=== PATIENT | female | born 1940 | race Caucasian/White ===

== ENCOUNTER 2016-03-26 10:51 | Inpatient (IN) | payer MEDICARE, OTHER ==
[2016-03-26 11:41] LABS: ABSOLUTE LYMPHOCYTES (AUTO) 0.6 10^3/uL (0.5-4.7); ABSOLUTE MONOCYTES (AUTO) 0.9 10^3/uL (0.1-1.4); ABSOLUTE NEUT (AUTO) 7.7 10^3/uL (1.7-8.2); BASOPHILS % (AUTO) 0.3 % (0-2); EOSINOPHILS % (AUTO) 0.3 % (0-6); HEMATOCRIT 38.4 % (36.0-47.0); HEMOGLOBIN 13.1 g/dL (12.0-15.5); HGB HCT DIFFERENCE 0.9; LYMPHOCYTES % (AUTO) 6.5 % (13-45); MEAN CORPUSCULAR HEMOGLOBIN 33.6 pg (27.0-33.4); MEAN CORPUSCULAR HGB CONC 34.2 g/dL (32.0-36.0); MEAN CORPUSCULAR VOLUME 98 fl (80-97); MONOCYTES % (AUTO) 9.7 % (3-13); RED CELL DISTRIBUTION WIDTH 13.5 % (11.5-14.0); SEGMENTED NEUTROPHILS % (AUTO) 83.2 % (42-78); WHITE BLOOD COUNT 9.3 10^3/uL (4.0-10.5)
[2016-03-26 12:00] LABS: ALANINE AMINOTRANSFERASE 39 U/L (9-52); ALBUMIN 3.6 g/dL (3.5-5.0); ALKALINE PHOSPHATASE 108 U/L (38-126); ANION GAP 8 (5-19); ASPARTATE AMINO TRANSFERASE 51 U/L (14-36); BILIRUBIN,TOTAL 1.6 mg/dL (0.2-1.3); BLOOD UREA NITROGEN 8 mg/dL (7-20); CALCIUM 8.7 mg/dL (8.4-10.2); CARBON DIOXIDE 29 mmol/L (22-30); CHLORIDE 94 mmol/L (98-107); CREATINE KINASE 46 U/L (30-135); GLUCOSE 105 mg/dL (75-110); POTASSIUM 3.9 mmol/L (3.6-5.0); SODIUM 130.8 mmol/L (137-145); TOTAL PROTEIN 6.7 g/dL (6.3-8.2)
[2016-03-26 12:20] LABS: CREATINE KINASE MB 0.87 ng/mL (<4.55); TROPONIN I 0.075 ng/mL
--- NOTE | 2016-03-26 12:45 | ER Document Report ---
ED General - General Chief Complaint: Syncope Stated Complaint: POSSIBLE SYNCOPE Mode of Arrival: Medic Information source: Patient Notes: 68-year-old female history of A. fib presents after syncopal episode today.. Pt notes she has not felt well the past few weeks, deniea any chest pain sob, difficlty breathing. pt found by EMS with a heart rate in the 170s was given Cardizem bolus placed on the drip and brought to the emergency department for evaluation patient at this time denies any complaints Patient is on metoprolol TRAVEL OUTSIDE OF THE [place] IN LAST 30 DAYS: No - HPI Onset: Just prior to arrival Onset/Duration: Sudden Quality of pain: No pain Severity: Mild Pain Level: Denies Associated symptoms: Sore throat, Weakness Exacerbated by: Denies Relieved by: Denies Similar symptoms previously: No Recently seen / treated by doctor: No - Related Data Allergies/Adverse Reactions: Penicillins Allergy (Verified 12/13/14 15:09) Tetanus Vaccines and Toxoid [Tetanus] Allergy (Verified 12/13/14 15:09) Past Medical History - Social History Smoking Status: Former Smoker Cigarette use (# per day): No Chew tobacco use (# tins/day): No Smoking Education Provided: No Family History: None - Past Medical History Cardiac Medical History: Reports: Hx Atrial Fibrillation, Hx Hypercholesterolemia, Hx Hypertension Renal/ Medical History: Denies: Hx Peritoneal Dialysis Past Surgical History: Reports: Hx Appendectomy, Hx Hysterectomy Review of Systems - Review of Systems Notes: REVIEW OF SYSTEMS: CONSTITUTIONAL : Denies fever, chills, or sweats. Denies recent illness. EENT: Admits to sore throat CARDIOVASCULAR: Denies chest pain. Denies palpitations or racing or irregular heart beat. Denies ankle edema. RESPIRATORY: Denies cough, cold, or chest congestion. Denies shortness of breath, difficulty breathing, or wheezing. GASTROINTESTINAL: Denies abdominal pain or distention. Denies nausea, vomiting , or diarrhea. Denies blood in vomitus, stools, or per rectum. Denies black, tarry stools. Denies constipation. GENITOURINARY: Denies difficulty urinating, painful urination, burning, frequency, blood in urine, or discharge. FEMALE GENITOURINARY: Denies vaginal bleeding, heavy or abnormal periods, irregular periods. Denies vaginal discharge or odor. MUSCULOSKELETAL: Denies back or neck pain or stiffness. Denies joint pain or swelling. SKIN: Denies rash, lesions or sores. HEMATOLOGIC : Denies easy bruising or bleeding. LYMPHATIC: Denies swollen, enlarged glands. NEUROLOGICAL: Admits to syncope PSYCHIATRIC: Denies anxiety or stress. Denies depression, suicidal ideation, or homicidal ideation. ALL OTHER SYSTEMS REVIEWED AND NEGATIVE. Dictation was performed using [employer] voice recognition software PHYSICAL EXAMINATION: GENERAL: Well-appearing, well-nourished and in no acute distress. HEAD: Atraumatic, normocephalic. EYES: Pupils equal round and reactive to light, extraocular movements intact, conjunctiva are normal. ENT: Pustular tonsillar pillars on the right NECK: Normal range of motion, supple without lymphadenopathy LUNGS: Breath sounds clear to auscultation bilaterally and equal. No wheezes rales or rhonchi. HEART: irregular rate and rhythm ABDOMEN: Soft, nontender, nondistended abdomen. No guarding, no rebound. No masses appreciated. Female : deferred Musculoskeletal: Normal range of motion, no pitting or edema. No cyanosis. NEUROLOGICAL: Cranial nerves grossly intact. Normal speech, normal gait. Normal sensory, motor exams PSYCH: Normal mood, normal affect. SKIN: Warm, Dry, normal turgor, no rashes or lesions noted. Physical Exam - Vital signs Vitals: Temp Pulse Resp BP Pulse Ox 98.6 F 97 16 125/67 98 03/26/16 11:16 03/26/16 11:16 03/26/16 11:16 03/26/16 11:16 03/26/16 11:16 Course - Re-evaluation Re-evalutation: 03/26/16 12:48 Patient is currently on Cardizem drip resting comfortably in no distress. Happy strep pending laboratory notes no significant abnormality I will admit the patient for A. fib RVR - Vital Signs Vital signs: Temp Pulse Resp BP Pulse Ox 98.6 F 97 16 125/67 98 03/26/16 11:16 03/26/16 11:16 03/26/16 11:16 03/26/16 11:16 03/26/16 11:36 - Laboratory Result Diagrams: 03/26/16 11:25 03/26/16 11:25 Laboratory results interpreted by me: 03/26/16 03/26/16 11:25 11:25 MCV 98 H MCH 33.6 H Seg Neutrophils % 83.2 H Lymphocytes % 6.5 L Sodium 130.8 L Chloride 94 L Total Bilirubin 1.6 H AST 51 H - Diagnostic Test Radiology reviewed: Image reviewed, Reports reviewed Critical Care Note - Critical Care Note Total time excluding time spent on procedures (mins): 34 Comments: 34 minutes of critical care time spent in direct contact evaluating and reevaluating the patient, treating symptoms, reviewing labs and studies and speaking with family and consultants excluding any procedures Discharge - Discharge Clinical Impression: Atrial fibrillation with RVR, Syncope and collapse Condition: Stable Disposition: ADMITTED OBSERVATION Admitting Provider: Hospitalist Unit Admitted: [facility]
[2016-03-26] MEDS ORDERED: ONDANSETRON 4 MG TAB.RAPDIS PO PRN (14:13)
[2016-03-26] MEDS ORDERED: ACETAMINOPHEN 325 MG TABLET PO PRN (14:13)
[2016-03-26] MEDS ORDERED: DILTIAZEM HCL/D5W 125 ML IV PRN ×2 (14:21→15:01)
[2016-03-26] MEDS ORDERED: LISINOPRIL 10 MG TABLET PO ONE (15:00)
[2016-03-26] MEDS ORDERED: METOPROLOL SUCCINATE 50 MG TAB.SR.24H PO ONE (15:15)
--- NOTE | 2016-03-26 15:19 | PDOC H&P ---
History of Present Illness Admission Date/PCP: 03/26/16 13:45 SARAY LOPEZ Patient complains of: Loss of consciousness and palpitations History of Present Illness: TAMEKA THOMAS is a 76 year old female who has a history of atrial fibrillation who was standing up this morning and began feeling palpitations and then lost consciousness and fell to the floor. She quickly regained consciousness but did note her heart going fast. EMS was called and when they arrived she was noted have a heart rate of 170. Patient denied any chest pain associated with this. She did have some mild shortness of breath. The patient was given diltiazem and her heart rate has decreased. She normally takes metoprolol 25 mg daily for her hypertension and atrial fibrillation. Patient reports that she has been compliant with her medications. She does take Xarelto chronically. Patient is followed by Dr. Anthony of [facility] cardiology for her cardiac issues. Past Medical History Cardiac Medical History: Reports: Atrial Fibrillation, Hyperlipidema, Hypertension Neurological Medical History: Reports: Seizures Endocrine Medical History: Reports: None Renal/ Medical History: Reports: None Malignancy Medical History: Reports: None GI Medical History: Reports: None Skin Medical History: Reports: None Psychiatric Medical History: Reports: None Traumatic Medical History: Reports: None Hematology: Reports: None Infectious Medical History: Reports: None Past Surgical History Past Surgical History: Reports: Appendectomy, Hysterectomy Social History Information Source: Patient Lives with: Family Smoking Status: Former Smoker Frequency of Alcohol Use: None Hx Recreational Drug Use: No Drugs: None Hx Prescription Drug Abuse: No - Advance Directive Resuscitation Status: Full Code Family History Family History: Mother at age 68 and had coronary artery disease and diabetes mellitus. Father at age 55 and had coronary artery disease. Parental Family History Reviewed: Yes Children Family History Reviewed: No Sibling(s) Family History Reviewed.: No Medication/Allergy Home Medications: Nitrofurantoin/Nitrofuran Mac [Macrobid 100 mg Capsule] 100 mg PO BID #14 capsule 12/13/14 Allergies/Adverse Reactions: Penicillins Allergy (Verified 12/13/14 15:09) Tetanus Vaccines and Toxoid [Tetanus] Allergy (Verified 12/13/14 15:09) Review of Systems Constitutional: ABSENT: chills, fever(s), headache(s), weight gain, weight loss Eyes: ABSENT: visual disturbances Ears: ABSENT: hearing changes Cardiovascular: PRESENT: dyspnea on exertion, palpitations. ABSENT: chest pain , edema, orthropnea Respiratory: PRESENT: dyspnea. ABSENT: cough, hemoptysis Gastrointestinal: ABSENT: abdominal pain, constipation, diarrhea, hematemesis, hematochezia, nausea, vomiting Genitourinary: ABSENT: dysuria, hematuria Musculoskeletal: ABSENT: joint swelling Integumentary: ABSENT: rash, wounds Neurological: PRESENT: syncope Psychiatric: ABSENT: anxiety, depression, homidical ideation, suicidal ideation Endocrine: ABSENT: cold intolerance, heat intolerance, polydipsia, polyuria Hematologic/Lymphatic: ABSENT: easy bleeding, easy bruising Physical Exam Vital Signs: Temp Pulse Resp BP Pulse Ox 98.6 F 97 20 112/65 99 03/26/16 11:16 03/26/16 13:06 03/26/16 13:06 03/26/16 13:06 03/26/16 13:06 General appearance: PRESENT: no acute distress, well-developed, well-nourished Head exam: PRESENT: atraumatic, normocephalic Eye exam: PRESENT: conjunctiva pink, EOMI, PERRLA. ABSENT: scleral icterus Ear exam: PRESENT: normal external ear exam Mouth exam: PRESENT: moist, tongue midline Neck exam: ABSENT: carotid bruit, JVD, lymphadenopathy, thyromegaly Respiratory exam: PRESENT: clear to auscultation maryanne. ABSENT: rales, rhonchi, wheezes Cardiovascular exam: PRESENT: irregular rhythm. ABSENT: diastolic murmur, rubs , systolic murmur Pulses: PRESENT: normal dorsalis pedis pul Vascular exam: PRESENT: normal capillary refill GI/Abdominal exam: PRESENT: normal bowel sounds, soft. ABSENT: distended, guarding, mass, organolmegaly, rebound, tenderness Rectal exam: PRESENT: deferred Extremities exam: ABSENT: calf tenderness, clubbing, pedal edema Neurological exam: PRESENT: alert, awake, oriented to person, oriented to place , oriented to time, oriented to situation, CN II-XII grossly intact. ABSENT: motor sensory deficit Psychiatric exam: PRESENT: appropriate affect Skin exam: PRESENT: dry, intact, warm. ABSENT: cyanosis, rash Results Impressions: Chest/Abdomen CTA 03/26/16 12:45 IMPRESSION: 1. No PE. 2. Lower lobe airspace disease could represent atelectasis or developing pneumonia. Clinical correlation is needed. Assessment & Plan - Diagnosis (1) Syncope and collapse Is this a current diagnosis for this admission?: YesPlan: The patient had syncope the most likely secondary to age fibrillation with a rapid ventricular rate. When EMS arrived her heart rate was 170. She is currently rate controlled with diltiazem drip. Patient only takes metoprolol and we will increase her metoprolol dose and see if we can wean off of the diltiazem drip. She does have a history of a seizure disorder but did not have any postictal state. (2) Atrial fibrillation with RVR Is this a current diagnosis for this admission?: YesPlan: The patient is rate controlled now with diltiazem drip. We will increase her metoprolol dose and see if we can wean off of her diltiazem. She is currently anticoagulated with Xarelto. (3) Seizure disorder Is this a current diagnosis for this admission?: YesPlan: Continue with Keppra. The patient did not have any seizure activity and did not have a postictal state. This was not the cause of her syncope. (4) Hyperlipidemia Is this a current diagnosis for this admission?: YesPlan: Continue with Zocor. (5) Hypertension Is this a current diagnosis for this admission?: YesPlan: Patient has been on metoprolol and lisinopril for blood pressure control. We' ll continue with those but we will increase her dose of metoprolol. - Time Time Spent: 50 to 70 Minutes - Plan Summary Plan Summary: We'll admit as an observation as I anticipate this will require less than a 2 midnight hospital stay.
[2016-03-26 15:39] LABS: CREATINE KINASE MB 0.98 ng/mL (<4.55)
[2016-03-26 15:55] LABS: TROPONIN I 0.12 ng/mL
[2016-03-26] MEDS: RIVAROXABAN 10 MG TABLET PO SCH (19:02)
[2016-03-26] MEDS: FAMOTIDINE 20 MG TABLET PO SCH (21:23)
[2016-03-26] MEDS: SIMVASTATIN 40 MG TABLET PO SCH (21:23)
[2016-03-26] MEDS: LEVETIRACETAM 500 MG TABLET PO SCH (21:23)
[2016-03-26] MEDS: MONTELUKAST SODIUM 10 MG TABLET PO SCH (21:23)
[2016-03-26 21:28] LABS: TROPONIN I 0.133 ng/mL
--- NOTE | 2016-03-26 23:52 | EKG REPORT ---
SEVERITY:- ABNORMAL ECG - ATRIAL FIBRILLATION, V-RATE 75-122 CONSIDER LEFT VENTRICULAR HYPERTROPHY : Confirmed by: Marlena Graff 26-Mar-2016 23:52:11
--- NOTE | 2016-03-26 23:53 | EKG REPORT ---
SEVERITY:- ABNORMAL ECG - ATRIAL FIBRILLATION VPCs NONSPECIFIC REPOL ABNORMALITY, DIFFUSE LEADS : Confirmed by: Marlena Graff 26-Mar-2016 23:51:54
[2016-03-27] MEDS ORDERED: METOPROLOL TARTRATE PF/INJ 5 MG/5 ML SDV IV ONE ×2 (01:20→02:00)
[2016-03-27 03:24] LABS: CREATINE KINASE MB 1.18 ng/mL (<4.55); TROPONIN I 0.098 ng/mL
[2016-03-27 07:14] LABS: ANION GAP 12 (5-19); BLOOD UREA NITROGEN 10 mg/dL (7-20); CALCIUM 8.9 mg/dL (8.4-10.2); CARBON DIOXIDE 22 mmol/L (22-30); CHLORIDE 97 mmol/L (98-107); CREATININE RESULT 0.43 mg/dL (0.52-1.25); GLUCOSE 91 mg/dL (75-110); MAGNESIUM 1.8 mg/dL (1.6-2.3); SODIUM 130.7 mmol/L (137-145)
[2016-03-27] MEDS: LISINOPRIL 10 MG TABLET PO SCH (12:02)
[2016-03-27] MEDS: HALOPERIDOL 5 MG TABLET PO PRN (12:02)
[2016-03-27] MEDS: FAMOTIDINE 20 MG TABLET PO SCH ×2 (12:03→21:58)
[2016-03-27] MEDS: LEVETIRACETAM 500 MG TABLET PO SCH ×2 (12:03→21:58)
[2016-03-27] MEDS: METOPROLOL SUCCINATE 50 MG TAB.SR.24H PO SCH (12:04)
[2016-03-27] MEDS ORDERED: LORAZEPAM INJ 2 MG/1 ML VIAL IV PRN (12:58)
[2016-03-27] MEDS ORDERED: LORAZEPAM INJ 2 MG/1 ML VIAL ONE (13:15)
--- NOTE | 2016-03-27 13:21 | PDOC PROGRESS REPORT ---
Subjective Progress Note for:: 03/27/16 Subjective:: Patient became confused last night. Her heart rate has fluctuated. She has had to be restarted on diltiazem. Physical Exam Vital Signs: Temp Pulse Resp BP Pulse Ox 98.4 F 79 19 142/52 H 98 03/27/16 11:41 03/27/16 12:00 03/27/16 11:41 03/27/16 12:46 03/27/16 11:41 Intake & Output 03/26/16 03/27/16 03/28/16 06:59 06:59 06:59 Intake Total 855 237 Output Total 250 Balance 605 237 Weight 51.6 kg General appearance: PRESENT: no acute distress Eye exam: PRESENT: conjunctiva pink. ABSENT: scleral icterus Mouth exam: PRESENT: moist, tongue midline Neck exam: ABSENT: carotid bruit, JVD, lymphadenopathy, thyromegaly Respiratory exam: PRESENT: clear to auscultation maryanne. ABSENT: rales, rhonchi, wheezes Cardiovascular exam: PRESENT: irregular rhythm. ABSENT: diastolic murmur, rubs , systolic murmur GI/Abdominal exam: PRESENT: normal bowel sounds, soft. ABSENT: distended, guarding, mass, organolmegaly, rebound, tenderness Extremities exam: ABSENT: calf tenderness, clubbing, pedal edema Neurological exam: PRESENT: alert, awake, oriented to person, oriented to place. ABSENT: oriented to time, oriented to situation Psychiatric exam: PRESENT: anxious Skin exam: PRESENT: dry, intact, warm. ABSENT: cyanosis, rash Results Laboratory Results: 03/27/16 06:45 03/27/16 03/27/16 06:45 06:45 Sodium 130.7 L Potassium 4.0 Chloride 97 L Carbon Dioxide 22 Anion Gap 12 BUN 10 Creatinine 0.43 L Est GFR ( Amer) > 60 Est GFR (Non-Af Amer) > 60 Glucose 91 Calcium 8.9 Magnesium 1.8 TSH 1.13 03/26/16 03/26/16 03/26/16 14:49 14:49 20:45 Creatine Kinase 43 46 CK-MB (CK-2) 0.98 Troponin I 0.120 03/26/16 03/27/16 03/27/16 20:45 02:47 02:47 Creatine Kinase 44 CK-MB (CK-2) 1.00 1.18 Troponin I 0.133 0.098 Impressions: Chest/Abdomen CTA 03/26/16 12:45 IMPRESSION: 1. No PE. 2. Lower lobe airspace disease could represent atelectasis or developing pneumonia. Clinical correlation is needed. Assessment & Plan - Diagnosis (1) Syncope and collapse Is this a current diagnosis for this admission?: YesPlan: The patient had syncope the most likely secondary to age fibrillation with a rapid ventricular rate. When EMS arrived her heart rate was 170. She is currently rate controlled with diltiazem drip. The metoprolol was increased yesterday. Cardiology has been consulted. (2) Atrial fibrillation with RVR Is this a current diagnosis for this admission?: YesPlan: The patient is rate controlled now with diltiazem drip. The patient converted yesterday evening to a sinus rhythm but has gone back into atrial fibrillation. We will consult cardiology for their opinion. She is currently anticoagulated with Xarelto. (3) Seizure disorder Is this a current diagnosis for this admission?: YesPlan: Continue with Keppra. . (4) Hyperlipidemia Is this a current diagnosis for this admission?: YesPlan: Continue with Zocor. (5) Hypertension Is this a current diagnosis for this admission?: YesPlan: Patient has been on metoprolol and lisinopril for blood pressure control. We' ll continue with those. - Time Time Spent with patient: 25-34 minutes - Inpatient Certification Medical Necessity: Need Close Monitoring Due to Risk of Patient Decompensation - Plan Summary Plan Summary: We'll change from an observation to an inpatient as she is not ready to go home because her heart rate is still not controlled.
--- NOTE | 2016-03-27 13:58 | PDOC CONSULTATION ---
History of Present Illness Admission Date/PCP: 03/26/16 13:45 SARAY Blanca JESSICA Date of consultation: 03/27/2016. Patient complains of: Atrial fibrillation with rapid ventricular response, and syncope and collapse. History of Present Illness: TAMEKA THOMAS is a 76 year old female who has a history of atrial fibrillation and hypertension who was standing up in the morning off 03/26/2016. And began feeling palpitations and then lost consciousness and fell to the floor. She quickly regained consciousness but did note her heart going fast. EMS was called and when they arrived she was noted have a heart rate of 170. Patient denied any chest pain associated with this. She did have some mild shortness of breath. The patient was given diltiazem and her heart rate has decreased. She normally takes metoprolol 25 mg daily for her hypertension and atrial fibrillation. Patient reports that she has been compliant with her medications. She does take Xarelto chronically. Patient is followed by Dr. Anthony of [facility] cardiology for her cardiac issues. She was started on Cardizem drip and converted to sinus rhythm. But when the Cardizem drip was stopped the patient reverted back to atrial fibrillation. At present the patient is a sinus rhythm with APCs and her metoprolol has been increased. As per the daughter the patient since the last 3-4 weeks has been having more episodes of fluttering in her chest. She denies any chest pain or discomfort, except when she had rapid response she had a little tightness in the front of the left chest. The patient also has intermittent confusion. The patient apart from metoprolol is also on Xarelto, and there is no history of the TIA or CVA. There is no bleeding or Xarelto. The patient denies any PND orthopnea. Past Medical History Cardiac Medical History: Reports: Atrial Fibrillation - Her atrial fibrillation is paroxysmal., Coronary Artery Disease - There is no history of coronary artery disease., Myocardial Infarction - There is no history of myocardial infarction area, Hyperlipidema, Hypertension, Other - She has no history of [place] or coronary artery disease. Pulmonary Medical History: Reports: None - There is no history of asthma or COPD , and no history of sleep apnea. Neurological Medical History: Reports: Seizures - (Fulda Mal seizures). She also has memory loss. Endocrine Medical History: Reports: None Endocrine History Note: There is no diabetes mellitus or hypo-or hyperthyroidism. Renal/ Medical History: Reports: None Malignancy Medical History: Reports: None Malignancy History Note: There is no chronic kidney disease. There are no symptoms of UTI. GI Medical History: Reports: None Skin Medical History: Reports: None Psychiatric Medical History: Reports: None - There is no history of anxiety or depression., Tobacco Dependency - She quit smoking many years ago. Traumatic Medical History: Reports: None Hematology: Reports: None Infectious Medical History: Reports: None Past Surgical History Past Surgical History: Reports: Appendectomy, Hysterectomy Social History Information Source: Patient - The patient's former smoker she quit smoking many years ago. Lives with: Family Smoking Status: Former Smoker Frequency of Alcohol Use: Occasional Hx Recreational Drug Use: No Drugs: None Hx Prescription Drug Abuse: No - Advance Directive Resuscitation Status: Full Code Surrogate healthcare decision maker:: The patient's son is his surrogate healthcare ratio maker. Family History Family History: None, CAD - There is a history of coronary artery disease in her mother. Medication/Allergy Home Medications: Levetiracetam [Keppra 500 mg Tablet] 500 mg PO BID 03/26/16 Lisinopril [Prinivil 40 mg Tablet] 40 mg PO DAILY 03/26/16 Metoprolol Succinate [Toprol Xl 25 mg Tab.sr] 50 mg PO DAILY 03/26/16 Montelukast Sodium [Singulair 10 mg Tablet] 10 mg PO DAILY 03/26/16 Rivaroxaban [Xarelto 10 mg Tablet] 10 mg PO DAILY 03/26/16 Simvastatin [Zocor 40 mg Tablet] 40 mg PO QHS 03/26/16 Diltiazem HCl/D5w [Cardizem RTU Inj 125 mg-D5w 125 ml Premix] 2.5 mg IV Allergies/Adverse Reactions: Penicillins Allergy (Verified 12/13/14 15:09) Tetanus Vaccines and Toxoid [Tetanus] Allergy (Verified 12/13/14 15:09) Review of Systems Constitutional: PRESENT: anorexia - There is no history of anorexia chills fever or rigors. Eyes: PRESENT: as per HPI - No history of visual disturbance. No amaurosis fugax.. ABSENT: visual disturbances Breasts: PRESENT: other - No history of hearing loss. No history of tinnitus and no history of vertigo Respiratory: PRESENT: cough - She states that she has mild cough with some scanty white sputum production, although she thinks she is coming down with a cold. She denies any wheezing. At present she has no shortness of breath., dyspnea - She had mild dyspnea when her heart rate was up due to atrial fibrillation with rapid ventricular response. Gastrointestinal: PRESENT: abdominal pain, dysphagia - No history of dysphagia, no history of hematemesis or hematochezia Musculoskeletal: PRESENT: other - No acute joint swelling or pain or tenderness in the joints Integumentary: PRESENT: other - No history of psoriasis, and no history of skin cancer. There is no petechia or ecchymosis. Neurological: PRESENT: confusion - As per the [id number] the patient has intermittent confusion, and memory loss. She also has a history of petit mal seizures Psychiatric: PRESENT: anxiety - No history of anxiety or depression. Physical Exam Vital Signs: Temp Pulse Resp BP Pulse Ox 98.4 F 79 19 142/52 H 98 03/27/16 11:41 03/27/16 12:00 03/27/16 11:41 03/27/16 12:46 03/27/16 11:41 Intake & Output 03/26/16 03/27/16 03/28/16 06:59 06:59 06:59 Intake Total 855 237 Output Total 250 Balance 605 237 Weight 51.6 kg General appearance: PRESENT: no acute distress Head exam: PRESENT: atraumatic, normocephalic Eye exam: PRESENT: conjunctiva pink, EOMI, PERRLA - There is no scleral icterus. Ear exam: PRESENT: normal external ear exam, TM's normal bilaterally Mouth exam: PRESENT: moist, neck supple, tongue midline Teeth exam: PRESENT: other - There is no ulcers in the mouth. Throat exam: PRESENT: post pharyngeal erythema - There is no pharyngeal erythema , and no tonsillar exudates seen. Neck exam: PRESENT: JVD - Neck is supple. There is no JVD carotids are equal without any bruits. There is no lymphadenopathy. There is no goiter. Trachea central Respiratory exam: PRESENT: other - There are no accessory muscles of respiration in use. Lungs are clear bilaterally to auscultation and percussion. There is no rhonchi rales or wheezing. Cardiovascular exam: PRESENT: +S1, +S2 - S1 and S2 heard normally S1 is of normal intensity there is systolic murmur in the apex and at the left sternal border without radiation. There is no S3 or S4 gallops. There is no rub Pulses: PRESENT: normal femoral pulses - Femorals are well felt there is no femoral bruits .Pedal pulses are 2+ bilaterally. There is no edema. There is no cyanosis or clubbing. There is no calf tenderness. GI/Abdominal exam: PRESENT: other - Abdomen is soft, nontender. There is no hepatomegaly bowel sounds are well heard. There is no ascites. Rectal exam: PRESENT: deferred Musculoskeletal exam: PRESENT: other - There is no acute joint swelling or tenderness or redness. Neurological exam: PRESENT: alert, awake - At present the patient seems to be oriented 3 but later the granddaughter said that she was slightly confused., CN II-XII grossly intact - There is no focal deficits Psychiatric exam: PRESENT: other - The patient does not appear to be agitated but cc to be slightly confused.. Her judgment and insight have not been tested. Results Laboratory Results: 03/27/16 06:45 03/27/16 03/27/16 06:45 06:45 Sodium 130.7 L Potassium 4.0 Chloride 97 L Carbon Dioxide 22 Anion Gap 12 BUN 10 Creatinine 0.43 L Est GFR ( Amer) > 60 Est GFR (Non-Af Amer) > 60 Glucose 91 Calcium 8.9 Magnesium 1.8 TSH 1.13 03/26/16 03/26/16 03/26/16 14:49 14:49 20:45 Creatine Kinase 43 46 CK-MB (CK-2) 0.98 Troponin I 0.120 03/26/16 03/27/16 03/27/16 20:45 02:47 02:47 Creatine Kinase 44 CK-MB (CK-2) 1.00 1.18 Troponin I 0.133 0.098 EKG Comments: Sinus rhythm with multiple APCs. Impressions: Chest/Abdomen CTA 03/26/16 12:45 IMPRESSION: 1. No PE. 2. Lower lobe airspace disease could represent atelectasis or developing pneumonia. Clinical correlation is needed. Assessment & Plan - Diagnosis (1) Elevated troponin I level Is this a current diagnosis for this admission?: YesPlan: His elevated troponin I level is secondary to atrial fibrillation with rapid ventricle response. No definite evidence of type I [place]. This is supply demand issue caused by a type II myocardial infarction, due to atrial fibrillation with rapid ventricular response. At present patient is in sinus rhythm and EKG does not show any acute changes. The troponin I is trending down and is come down to 0.098. (2) Memory loss Is this a current diagnosis for this admission?: YesPlan: This very loss seems to be intermittent, and the [id number] states that the patient is seeing a neurologist and will be started on treatment for that. (3) Atrial fibrillation with RVR Is this a current diagnosis for this admission?: YesPlan: Continue Cardizem at 2.5 mg/h drip. Continue metoprolol at 50 mg sustained release once daily. Note patient has converted to sinus rhythm. If she goes back in atrial fibrillation sotalol might be a good choice. Continue Xarelto (4) Hyperlipidemia Qualifiers: Hyperlipidemia type: unspecified Qualified Code(s): E78.5 - Hyperlipidemia, unspecified Is this a current diagnosis for this admission?: Yes (5) Hypertension Qualifiers: Hypertension type: essential hypertension Qualified Code(s): I10 - Essential (primary) hypertension Is this a current diagnosis for this admission?: YesPlan: The blood pressure seems to be reasonably controlled. If the blood pressure drops and there is a requirement increased the Toprol then would decrease the patient's lisinopril. (6) Seizure disorder Is this a current diagnosis for this admission?: YesPlan: She has a history of petit mal seizures. This is well controlled by Keppra, and she has not had a seizure episode this admission (7) Syncope and collapse Is this a current diagnosis for this admission?: YesPlan: This is secondary to atrial fibrillation with rapid ventricular response. Note that the paramedics were there per patient's heart rate was 170 bpm - Notes Notes: The patient had an echo done on 11/06/[address] Anthony's office. This showed mild asymmetric left atrial hypertrophy there is thrombus left frontal systolic function is normal right ventricular systolic function is normal the left atrium is borderline dilated there is no mitral valve stenosis there is 2 jets of mild MR is mild to moderate tricuspid regurgitation right frontal systolic pressure is 40 mmHg assuming a right atrial pressure of 8 mmHg which is mild pulmonary hypertension there is no significant aortic valvular stenosis there is no aortic regurgitation C there is no pericardial effusion seen. She had a Lexiscan Cardiolite stress test done 11/28/2011. There were no reperfusion defects noted is for ischemia or infarction. - Time Smoking Education Provided: Other - Note patient is a former smoker, and does not smoke anymore. 40 minutes spent on this patient with more than 50% of the time involved and direct patient care proving her records from her health tech' s office. Reviewing and adjusting medications, and coordinating care with the care giving per providers on this case. Disposition: The patient is a full code. Her surrogate healthcare decision-maker is her son
[2016-03-27] MEDS: RIVAROXABAN 10 MG TABLET PO SCH (18:38)
--- NOTE | 2016-03-27 21:40 | EKG REPORT ---
SEVERITY:- ABNORMAL ECG - SINUS RHYTHM MULTIPLE ATRIAL PREMATURE COMPLEXES NONSPECIFIC ST-T CHANGES : Confirmed by: Marlena Graff 27-Mar-2016 21:40:13
[2016-03-27] MEDS: MONTELUKAST SODIUM 10 MG TABLET PO SCH (21:58)
[2016-03-27] MEDS: SIMVASTATIN 40 MG TABLET PO SCH (21:58)
[2016-03-28] MEDS: HALOPERIDOL 5 MG TABLET PO PRN (02:38)
[2016-03-28] MEDS ORDERED: LORAZEPAM INJ 2 MG/1 ML VIAL IV ONE (05:00)
[2016-03-28 06:43] LABS: ANION GAP 11 (5-19); BLOOD UREA NITROGEN 11 mg/dL (7-20); CALCIUM 8.7 mg/dL (8.4-10.2); CARBON DIOXIDE 22 mmol/L (22-30); CHLORIDE 99 mmol/L (98-107); CREATININE RESULT 0.44 mg/dL (0.52-1.25); GLUCOSE 152 mg/dL (75-110); POTASSIUM 3.4 mmol/L (3.6-5.0); SODIUM 132.1 mmol/L (137-145)
--- NOTE | 2016-03-28 11:17 | EKG REPORT ---
SEVERITY:- BORDERLINE ECG - SINUS RHYTHM BORDERLINE T ABNORMALITIES, INFERIOR LEADS APC : Confirmed by: Marlena Graff 28-Mar-2016 11:16:25
[2016-03-28] MEDS: LISINOPRIL 10 MG TABLET PO SCH (12:03)
[2016-03-28] MEDS: METOPROLOL SUCCINATE 50 MG TAB.SR.24H PO SCH (12:04)
[2016-03-28] MEDS: DILTIAZEM HCL 30 MG TABLET PO SCH ×3 (12:04→23:55)
[2016-03-28] MEDS: LEVETIRACETAM 500 MG TABLET PO SCH ×2 (12:05→21:53)
[2016-03-28] MEDS: FAMOTIDINE 20 MG TABLET PO SCH ×2 (12:05→21:54)
--- NOTE | 2016-03-28 14:37 | PDOC PROGRESS REPORT ---
Subjective Progress Note for:: 03/28/16 Subjective:: Patient was confused last night and required Ativan. Physical Exam Vital Signs: Temp Pulse Resp BP Pulse Ox 97.7 F 84 19 167/68 H 98 03/28/16 12:02 03/28/16 12:02 03/28/16 12:02 03/28/16 12:02 03/28/16 12:02 Intake & Output 03/27/16 03/28/16 03/29/16 06:59 06:59 06:59 Intake Total 2090 0 Output Total 0 Balance 2090 0 General appearance: PRESENT: no acute distress Eye exam: PRESENT: conjunctiva pink. ABSENT: scleral icterus Mouth exam: PRESENT: moist, tongue midline Neck exam: ABSENT: JVD Respiratory exam: PRESENT: clear to auscultation maryanne. ABSENT: rales, rhonchi, wheezes Cardiovascular exam: PRESENT: irregular rhythm. ABSENT: diastolic murmur, rubs , systolic murmur GI/Abdominal exam: PRESENT: normal bowel sounds, soft. ABSENT: distended, guarding, mass, organolmegaly, rebound, tenderness Extremities exam: ABSENT: calf tenderness, clubbing, pedal edema Neurological exam: PRESENT: alert, awake, oriented to person, oriented to place , oriented to time, oriented to situation Psychiatric exam: PRESENT: appropriate affect Skin exam: PRESENT: dry, intact, warm. ABSENT: cyanosis, rash Results Laboratory Results: 03/28/16 06:02 03/28/16 06:02 Sodium 132.1 L Potassium 3.4 L Chloride 99 Carbon Dioxide 22 Anion Gap 11 BUN 11 Creatinine 0.44 L Est GFR ( Amer) > 60 Est GFR (Non-Af Amer) > 60 Glucose 152 H Calcium 8.7 Impressions: Chest/Abdomen CTA 03/26/16 12:45 IMPRESSION: 1. No PE. 2. Lower lobe airspace disease could represent atelectasis or developing pneumonia. Clinical correlation is needed. Assessment & Plan - Diagnosis (1) Syncope and collapse Is this a current diagnosis for this admission?: YesPlan: The patient had syncope the most likely secondary to age fibrillation with a rapid ventricular rate. When EMS arrived her heart rate was 170. She is currently rate controlled with diltiazem drip. (2) Atrial fibrillation with RVR Is this a current diagnosis for this admission?: YesPlan: The patient is rate controlled now with diltiazem drip. She is back in a regular rhythm currently. We will change to by mouth diltiazem and also continue metoprolol. Will DC the diltiazem drip. If she continues to remain rate controlled vaginal for discharge home tomorrow. She is currently anticoagulated with Xarelto. (3) Seizure disorder Is this a current diagnosis for this admission?: YesPlan: Continue with Keppra. (4) Hyperlipidemia Qualifiers: Hyperlipidemia type: unspecified Qualified Code(s): E78.5 - Hyperlipidemia, unspecified Is this a current diagnosis for this admission?: YesPlan: Continue with Zocor. (5) Hypertension Qualifiers: Hypertension type: essential hypertension Qualified Code(s): I10 - Essential (primary) hypertension Is this a current diagnosis for this admission?: YesPlan: Patient has been on metoprolol and lisinopril for blood pressure control. We' ll continue with those. (6) Dementia Is this a current diagnosis for this admission?: YesPlan: The patient has had problems with sundowning. She did receive Haldol but became more agitated. Will increase her dose of Ativan. - Time Time Spent with patient: 25-34 minutes - Inpatient Certification Medical Necessity: Need Close Monitoring Due to Risk of Patient Decompensation - Plan Summary Plan Summary: If she remains rate controlled he can hopefully discharge home tomorrow.
[2016-03-28] MEDS: LORAZEPAM INJ 2 MG/1 ML VIAL IV PRN ×2 (15:53→23:55)
[2016-03-28] MEDS: RIVAROXABAN 10 MG TABLET PO SCH (18:13)
--- NOTE | 2016-03-28 19:58 | PROGRESS NOTE E ---
Progress Note NAME: TAMEKA THOMAS : 1940 AGE: 76Y DATE: 03/28/2016 ROOM: [facility] SUBJECTIVE: The patient last night was very confused and required a couple of doses of Ativan. At present, the patient is heavily asleep. It is difficult to arouse her. She remains in sinus rhythm. There is no bleeding on Xarelto. OBJECTIVE: GENERAL: On examination, the patient is *------* built but seems to be well nourished. VITAL SIGNS: She is afebrile with a temperature of 97.7 degrees Fahrenheit. Pulse is 75 beats per minute. Blood pressure 111/50. Respirations are 19 per minute. O2 saturations are 93% on room air. HEENT: Head is atraumatic, normocephalic. Eyes: Pupils are equal, reactive to light. There is no scleral icterus. There is no conjunctival pallor. ENT is negative. NECK: Supple. There is no JVD. Carotids are equal; there is no bruit. There is no goiter. There is no lymphadenopathy. LUNGS: Clear to auscultation and percussion. CARDIOVASCULAR: S1, S2 are heard. There is no S3 gallop. There is no S4 gallop. S1 is of normal intensity. There is systolic murmur in the apex and the left sternal border without radiation. There is no rub. ABDOMEN: Soft, nontender. There is no hepatosplenomegaly. Bowel sounds are well heard. EXTREMITIES: Femorals are well heard. There are no femoral bruits. Pedal pulses are 2+ bilaterally. There is no pedal edema. There is no cyanosis or clubbing. There is no calf tenderness. MUSCULOSKELETAL: There is no acute joint swelling or tenderness or redness. NEUROLOGIC: The patient is very drowsy and asleep but moves all four extremities. PSYCHIATRIC: Exam unable to be made at this time. DIAGNOSTIC TESTS: The patient's EKG shows sinus rhythm, borderline T-wave abnormalities in inferior leads. The patient's sodium is 132; potassium is low at 3.4; chloride is 99; CO2 is 22. The patient's BUN is 11, creatinine 0.44. GFR is greater than 60. Her glucose is 152. Calcium is 8.7. The patient's TSH is 1.13. Note yesterday the patient's troponin-I trended down to 0.0*------*. We will recheck in the a.m. ASSESSMENT: 1. ELEVATED TROPONIN-I LEVEL. This is secondary to atrial fibrillation with rapid ventricular response. There is no definite evidence of type I myocardial infarction. This is a supply-demand issue. We will recheck the patient's troponin in the a.m. 2. CONFUSION. Most likely secondary to dementia. 3. SOMNOLENCE DUE TO ATIVAN. 4. MEMORY LOSS. 5. ATRIAL FIBRILLATION WITH RAPID VENTRICULAR RESPONSE, AT PRESENT PAROXYSMAL, HAS CONVERTED TO SINUS RHYTHM. 6. HYPERLIPIDEMIA. 7. HYPERTENSION. Blood pressure is well controlled. 8. SEIZURE DISORDER. 9. SYNCOPE AND COLLAPSE. There is no recurrent episode of this. This is secondary to patient's heart rate being fast. RECOMMENDATIONS: Continue the patient on current Lopressor. I will try to avoid the patient getting Ativan. We will follow with you. TIME SPENT: Note 30 minutes spent on this patient including reviewing the patient's medications and also more than 50% was spent in patient care and also discussions with the attending physician and other caregivers on the case. DICTATING PHYSICIAN: JOE LIN M.D. [id number] DELFINO#: [id number] ID: [id number] JOB#: [id number] ACCT: [id number] cc: >
[2016-03-28] MEDS: MONTELUKAST SODIUM 10 MG TABLET PO SCH (21:55)
[2016-03-28] MEDS: SIMVASTATIN 40 MG TABLET PO SCH (21:55)
[2016-03-29] MEDS: DILTIAZEM HCL 30 MG TABLET PO SCH ×4 (06:49→23:18)
[2016-03-29 08:34] LABS: ANION GAP 9 (5-19); BLOOD UREA NITROGEN 8 mg/dL (7-20); CALCIUM 8.9 mg/dL (8.4-10.2); CARBON DIOXIDE 26 mmol/L (22-30); CHLORIDE 98 mmol/L (98-107); CREATININE RESULT 0.44 mg/dL (0.52-1.25); GLUCOSE 94 mg/dL (75-110); POTASSIUM 3.7 mmol/L (3.6-5.0); SODIUM 132.9 mmol/L (137-145)
[2016-03-29] MEDS: LISINOPRIL 10 MG TABLET PO SCH (10:09)
[2016-03-29] MEDS: FAMOTIDINE 20 MG TABLET PO SCH ×2 (10:10→21:43)
[2016-03-29] MEDS: METOPROLOL SUCCINATE 50 MG TAB.SR.24H PO SCH (10:10)
[2016-03-29] MEDS: LEVETIRACETAM 500 MG TABLET PO SCH ×2 (10:10→21:43)
--- NOTE | 2016-03-29 13:06 | PDOC PROGRESS REPORT ---
Subjective Progress Note for:: 03/29/16 Subjective:: Patient is somnolent but will wake up but is confused. Physical Exam Vital Signs: Temp Pulse Resp BP Pulse Ox 98.8 F 75 18 147/68 H 91 L 03/29/16 11:32 03/29/16 11:32 03/29/16 11:32 03/29/16 11:32 03/29/16 11:32 Intake & Output 03/28/16 03/29/16 03/30/16 06:59 06:59 06:59 Intake Total 2090 1095 Output Total 0 0 Balance 0 1095 Weight 50.8 kg General appearance: PRESENT: no acute distress Head exam: PRESENT: atraumatic, normocephalic Eye exam: PRESENT: conjunctiva pink. ABSENT: scleral icterus Ear exam: PRESENT: normal external ear exam Mouth exam: PRESENT: moist, tongue midline Neck exam: ABSENT: JVD Respiratory exam: ABSENT: rales, rhonchi, wheezes Cardiovascular exam: PRESENT: RRR. ABSENT: diastolic murmur, rubs, systolic murmur GI/Abdominal exam: PRESENT: normal bowel sounds, soft. ABSENT: distended, guarding, mass, organolmegaly, rebound, tenderness Extremities exam: ABSENT: calf tenderness, clubbing, pedal edema Neurological exam: PRESENT: oriented to person. ABSENT: oriented to place, oriented to time, oriented to situation, motor sensory deficit Psychiatric exam: PRESENT: flat affect Skin exam: PRESENT: dry, intact, warm. ABSENT: cyanosis, rash Results Laboratory Results: 03/29/16 06:57 03/29/16 06:57 Sodium 132.9 L Potassium 3.7 Chloride 98 Carbon Dioxide 26 Anion Gap 9 BUN 8 Creatinine 0.44 L Est GFR ( Amer) > 60 Est GFR (Non-Af Amer) > 60 Glucose 94 Calcium 8.9 Impressions: Chest/Abdomen CTA 03/26/16 12:45 IMPRESSION: 1. No PE. 2. Lower lobe airspace disease could represent atelectasis or developing pneumonia. Clinical correlation is needed. Assessment & Plan - Diagnosis (1) Syncope and collapse Is this a current diagnosis for this admission?: YesPlan: The patient had syncope the most likely secondary to age fibrillation with a rapid ventricular rate. When EMS arrived her heart rate was 170. She is currently rate controlled with diltiazem and metoprolol. (2) Atrial fibrillation with RVR Is this a current diagnosis for this admission?: YesPlan: The patient is rate controlled now with diltiazem and metoprolol. She is in a regular rhythm today. She is currently anticoagulated with Xarelto. (3) Seizure disorder Is this a current diagnosis for this admission?: YesPlan: Continue with Keppra. (4) Hyperlipidemia Qualifiers: Hyperlipidemia type: unspecified Qualified Code(s): E78.5 - Hyperlipidemia, unspecified Is this a current diagnosis for this admission?: YesPlan: Continue with Zocor. (5) Hypertension Qualifiers: Hypertension type: essential hypertension Qualified Code(s): I10 - Essential (primary) hypertension Is this a current diagnosis for this admission?: YesPlan: Patient has been on metoprolol and lisinopril for blood pressure control. We' ll continue with those. (6) Dementia Is this a current diagnosis for this admission?: YesPlan: The patient has had problems with sundowning. She has not returned to her baseline today. We'll get a head CT to make certain she's not had intracranial bleed. - Time Time Spent with patient: 25-34 minutes - Inpatient Certification Medical Necessity: Need Close Monitoring Due to Risk of Patient Decompensation
[2016-03-29] MEDS ORDERED: AZITHROMYCIN 250 MG TABLET PO ONE (15:00)
[2016-03-29] MEDS: RIVAROXABAN 10 MG TABLET PO SCH (17:20)
--- NOTE | 2016-03-29 19:43 | PROGRESS NOTE E ---
Progress Note NAME: TAMEKA THOMAS : 1940 AGE: 76Y DATE: 03/29/2016 ROOM: 322 SUBJECTIVE: Note that the patient is still very somnolent but wakes up when awakened but is very confused. She remains in sinus rhythm. There is no pedal edema. There is no ventricular arrhythmia seen. There is no obvious bleeding on Xarelto. OBJECTIVE: GENERAL: On examination, the patient is of thin build but is well groomed. VITAL SIGNS: She is afebrile with a temperature of 98.8 degrees Fahrenheit. Pulse is 75 beats per minute. Blood pressure 147/68. Respirations are 18 per minute. O2 saturations are 91% on room air. HEAD: Atraumatic/normocephalic. EYES: Pupils are equal, round, regular, reactive to light. There is no conjunctival pallor. There is no scleral icterus. EARS, NOSE, AND THROAT: Negative. NECK: Supple. There is no JVD. Carotids are equal. There is no bruit. There is no lymphadenopathy. Trachea is central. LUNGS: Clear to auscultation/percussion. HEART: S1, S2 is heard. There is no S3 gallop. There is no S4 gallop. S1 is of normal intensity. There is a systolic murmur in the apex and left sternal border without radiation. There is no rub. ABDOMEN: Soft, nontender. There is no hepatosplenomegaly. Bowel sounds are well heard. EXTREMITIES: Femorals are well felt. There are no femoral bruits. Pedal pulses are 2+ bilaterally. There is no pedal edema. There is no cyanosis or clubbing. There is no calf tenderness. NEUROLOGIC: The patient is very somnolent but moves all 4 extremities. PSYCHIATRIC: Unable to examine. DIAGNOSTIC DATA: The patient's head CT shows no intracranial bleeding or infarction, but there is small vessel ischemic disease. The patient's sodium is 132.9, potassium is 3.7, chloride is 98, CO2 is 26, the patient's BUN is 8, creatinine 0.44, GFR is greater than 60, the patient's glucose is 94, and the patient's calcium is 8.9. IMPRESSION: 1. ELEVATED TROPONIN-I LEVEL. THIS IS SECONDARY TO ATRIAL FIBRILLATION, RAPID VENTRICULAR RESPONSE. NO DEFINITE EVIDENCE OF MYOCARDIAL INFARCTION. THIS IS A TYPE-2 SUPPLY/DEMAND MISMATCH. 2. CONFUSION AND SOMNOLENCE, MOST LIKELY SECONDARY TO DEMENTIA AND EFFECT OF ATIVAN. 3. HISTORY OF MEMORY LOSS. 4. PAROXYSMAL ATRIAL FIBRILLATION WITH RAPID VENTRICULAR RESPONSE, AT PRESENT HAS CONVERTED TO SINUS RHYTHM. 5. HYPERLIPIDEMIA. 6. HYPERTENSION. BLOOD PRESSURE IS WELL CONTROLLED. 7. SEIZURE DISORDER. NO SEIZURES THIS ADMISSION. 8. SYNCOPE AND COLLAPSE. THERE WERE NO RECURRENT EPISODES OF THIS. RECOMMENDATIONS: Would try to avoid Ativan. If the patient continues to be confused, then would try to change the patient's Lopressor to Cardizem since Lopressor can cause confusion. Continue on Xarelto. Will continue Keppra. Continue lisinopril. Will follow with you. Note 30 minutes spent on this patient, more than 50% of the time spent on direct patient care, reviewing the patient's medications and discussing the medical regimen with the attending physician on the case. Will follow with you. DICTATING PHYSICIAN: JOE LIN M.D. [id number] PHY#: [id number] ID: [id number] JOB#: [id number] ACCT: [id number] cc:JOE LIN M.D. >
[2016-03-29] MEDS: SIMVASTATIN 40 MG TABLET PO SCH (21:43)
[2016-03-29] MEDS: MONTELUKAST SODIUM 10 MG TABLET PO SCH (21:43)
[2016-03-30] MEDS: DILTIAZEM HCL 30 MG TABLET PO SCH ×4 (06:25→23:49)
[2016-03-30] MEDS: LEVETIRACETAM 500 MG TABLET PO SCH ×2 (09:50→21:52)
[2016-03-30] MEDS: METOPROLOL SUCCINATE 50 MG TAB.SR.24H PO SCH (09:50)
[2016-03-30] MEDS: FAMOTIDINE 20 MG TABLET PO SCH ×2 (09:51→21:52)
[2016-03-30] MEDS: LISINOPRIL 10 MG TABLET PO SCH (09:51)
[2016-03-30] MEDS ORDERED: AZITHROMYCIN 250 MG TABLET PO SCH (10:00)
[2016-03-30] MEDS ORDERED: DILTIAZEM HCL 30 MG TABLET PO ONE (10:30)
[2016-03-30] MEDS ORDERED: FLECAINIDE ACETATE 100 MG TABLET PO ONE (11:00)
--- NOTE | 2016-03-30 11:47 | PDOC PROGRESS REPORT ---
Subjective Progress Note for:: 03/30/16 Subjective:: Patient is less confused today. She had a head CT done yesterday which showed no acute event. Physical Exam Vital Signs: Temp Pulse Resp BP Pulse Ox 98.3 F 92 14 142/81 H 94 03/30/16 07:37 03/30/16 07:37 03/30/16 07:37 03/30/16 07:37 03/30/16 07:37 Intake & Output 03/29/16 03/30/16 03/31/16 06:59 06:59 06:59 Intake Total 1095 815 Output Total 0 Balance 1095 815 Weight 50.8 kg 52.8 kg General appearance: PRESENT: no acute distress Eye exam: PRESENT: conjunctiva pink. ABSENT: scleral icterus Ear exam: PRESENT: normal external ear exam Mouth exam: PRESENT: moist, tongue midline Neck exam: ABSENT: JVD Respiratory exam: PRESENT: clear to auscultation maryanne. ABSENT: rales, rhonchi, wheezes Cardiovascular exam: PRESENT: RRR. ABSENT: diastolic murmur, rubs, systolic murmur GI/Abdominal exam: PRESENT: normal bowel sounds, soft. ABSENT: distended, guarding, mass, organolmegaly, rebound, tenderness Extremities exam: PRESENT: full ROM. ABSENT: calf tenderness, clubbing, pedal edema Neurological exam: PRESENT: alert, awake, oriented to person, oriented to place. ABSENT: oriented to time, oriented to situation Psychiatric exam: PRESENT: flat affect Skin exam: PRESENT: dry, intact, warm. ABSENT: cyanosis, rash Results Laboratory Results: 03/29/16 06:57 03/30/16 05:06 Troponin I 0.143 Impressions: Chest/Abdomen CTA 03/26/16 12:45 IMPRESSION: 1. No PE. 2. Lower lobe airspace disease could represent atelectasis or developing pneumonia. Clinical correlation is needed. Head CT 03/29/16 00:00 IMPRESSION: No acute intracranial abnormality. Mild chronic changes as above. Assessment & Plan - Diagnosis (1) Syncope and collapse Is this a current diagnosis for this admission?: YesPlan: The patient had syncope the most likely secondary to age fibrillation with a rapid ventricular rate. When EMS arrived her heart rate was 170. She's had no further syncopal episodes. (2) Atrial fibrillation with RVR Is this a current diagnosis for this admission?: YesPlan: The patient is rate controlled now with diltiazem and metoprolol. She is in a regular rhythm currently. Last night she had episodes of tachycardia to heart rate of 170. Mostly was SVT. I consider transferring the patient [facility] electrophysiology study and discussed the case with Dr. Martir Ahuja. The patient is followed by [facility] cardiology. There are no beds currently available however he recommended starting the patient on flecainide 50 mg twice a day and that if she was still having tachycardic episodes for her to be transferred to their facility. She is currently anticoagulated with Xarelto. (3) Seizure disorder Is this a current diagnosis for this admission?: YesPlan: Continue with Christiana. (4) Hyperlipidemia Qualifiers: Hyperlipidemia type: unspecified Qualified Code(s): E78.5 - Hyperlipidemia, unspecified Is this a current diagnosis for this admission?: YesPlan: Continue with Zocor. (5) Hypertension Qualifiers: Hypertension type: essential hypertension Qualified Code(s): I10 - Essential (primary) hypertension Is this a current diagnosis for this admission?: YesPlan: Patient has been on metoprolol and lisinopril for blood pressure control. We' ll continue with those. (6) Dementia Is this a current diagnosis for this admission?: YesPlan: The patient has had problems with owning. Patient is still confused but is much improved from yesterday. - Time Time Spent with patient: 25-34 minutes - Inpatient Certification Medical Necessity: Need Close Monitoring Due to Risk of Patient Decompensation - Plan Summary Plan Summary: We'll start on flecainide as per above. If she still having problems with tachycardia we will plan on transferring to [facility] tomorrow.
[2016-03-30] MEDS: RIVAROXABAN 10 MG TABLET PO SCH (18:02)
[2016-03-30] MEDS: DIPHENHYDRAMINE HCL 25 MG CAPSULE PO PRN ×2 (20:05→23:49)
[2016-03-30] MEDS: SIMVASTATIN 40 MG TABLET PO SCH (21:52)
[2016-03-30] MEDS: MONTELUKAST SODIUM 10 MG TABLET PO SCH (21:52)
[2016-03-30] MEDS: FLECAINIDE ACETATE 100 MG TABLET PO SCH (21:53)
--- NOTE | 2016-03-30 23:48 | PROGRESS NOTE E ---
Progress Note NAME: TAMEKA THOMAS : 1940 AGE: 76Y DATE: 03/30/2016 ROOM: [facility] SUBJECTIVE: Note that the patient is more awake today and seems to be less confused. She remains in sinus rhythm. There is no shortness of breath. There is no chest pain or discomfort. There is no ventricular arrhythmia and there is no PND or orthopnea or leg edema. There are no TIA or CVA symptoms. There is no bleeding on Xarelto. Note: Dr. Mandujano, the hospitalist, has spoken to the patient's deputy sheriff lieutenant, Dr. Ahuja, in [facility] and the plan is to start the patient on flecainide 50 mg twice a day. OBJECTIVE: GENERAL: On examination, the patient is thin built but is well groomed. VITAL SIGNS: She is afebrile with a temperature of 98.4 degrees Fahrenheit orally. Pulse is 77 beats per minute. Blood pressure is 145/64. Respirations are 16 per minute. O2 saturations are 97% on room air. HEENT: Head is atraumatic, normocephalic. Eyes: Pupils are equal, round, regular, and reactive to light and accommodation. There is no conjunctival pallor. There is no scleral icterus. ENT is negative. NECK: Supple. There is no JVD. Carotids are equal; there is no bruit. There is no lymphadenopathy. Trachea is central. LUNGS: Clear to auscultation and percussion. CARDIOVASCULAR: S1, S2 are heard. There is no S3 gallop. There is no S4 gallop. S1 is of normal intensity. There is systolic murmur in the apex in the left sternal border without radiation. There is no rub. ABDOMEN: Soft, nontender. There is no hepatosplenomegaly. Bowel sounds are well heard. EXTREMITIES: Femorals are well heard. There are no femoral bruits. Pedal pulses are 2+ bilaterally. There is no pedal edema. There is no cyanosis or clubbing. There is no calf tenderness. NEUROLOGIC: The patient is less somnolent today and seems less confused but is able to move all 4 extremities. PSYCHIATRIC: The patient does not appear to be agitated or depressed. DIAGNOSTIC TESTS: Note that the patient's troponin I has gone up to 0.143. This may be due to SENIOR DATA QUALITY ANALYST confusion. No definite evidence of TX. ASSESSMENT: 1. ELEVATED TROPONIN-I LEVEL. This is secondary to atrial fibrillation with rapid ventricular response and subsequently SENIOR DATA QUALITY ANALYST cause. No definite evidence of myocardial infarction. This is a type-2 supply-demand mismatch. 2. CONFUSION AND SOMNOLENCE. Much improved, most likely secondary to dementia and effect of Ativan. Question if secondary to metoprolol. 3. HISTORY OF MEMORY LOSS. 5. PAROXYSMAL ATRIAL FIBRILLATION WITH RAPID VENTRICULAR RESPONSE, AT PRESENT CONVERTED TO SINUS RHYTHM. 6. HYPERLIPIDEMIA. 7. HYPERTENSION. Blood pressure is well controlled. 8. SEIZURE DISORDER. No seizure this admission. 9. SYNCOPE AND COLLAPSE. There are no recurrent episodes of this. RECOMMENDATIONS: As mentioned earlier, would try to avoid Ativan. Note that the patient is started on flecainide 50 mg p.o. q.12 h. and if there should be evidence of bradycardia, would taper off the metoprolol. Continue Xarelto, continue Keppra, continue lisinopril. Will follow with you. TIME SPENT: Note 30 minutes spent on this patient with more than 50% of the time spent on direct patient care, reviewing the patient's medication and discussing the medical regimen with the attending physician on the case and reviewed the patient's medications as mentioned earlier. DICTATING PHYSICIAN: JOE LIN M.D. [id number] DELFINO#: [id number] ID: [id number] JOB#: [id number] ACCT: [id number] cc: >
[2016-03-31] MEDS: LORAZEPAM INJ 2 MG/1 ML VIAL IV PRN (00:42)
[2016-03-31] MEDS ORDERED: LORAZEPAM INJ 2 MG/1 ML VIAL IV ONE (02:00)
[2016-03-31] MEDS ORDERED: RISPERIDONE 0.25 MG TABLET PO ONE (02:00)
[2016-03-31] MEDS: DILTIAZEM HCL 30 MG TABLET PO SCH (06:36)
[2016-03-31] MEDS: FLECAINIDE ACETATE 100 MG TABLET PO SCH (10:45)
[2016-03-31] MEDS: LISINOPRIL 10 MG TABLET PO SCH (10:45)
[2016-03-31] MEDS: LEVETIRACETAM 500 MG TABLET PO SCH (10:46)
[2016-03-31] MEDS: METOPROLOL SUCCINATE 50 MG TAB.SR.24H PO SCH (10:46)
[2016-03-31] MEDS: FAMOTIDINE 20 MG TABLET PO SCH (10:47)
[2016-03-31 14:32] VITALS: BP 137/57
--- NOTE | 2016-03-31 17:08 | PDOC DISCHARGE SUMMARY ---
General - Admit/Disc Date/PCP Admission Date/Primary Care Provider: 03/27/16 13:22 SARAY Rios ROMICAROLArthur Discharge Date: 03/31/16 - Discharge Diagnosis (1) Syncope and collapse Is this a current diagnosis for this admission?: YesSummary: felt to be secondary to the patient's atrial fibrillation with a rapid ventricular rate (2) Atrial fibrillation with RVR Is this a current diagnosis for this admission?: YesSummary: The patient has had resolution of her atrial fibrillation. She has continued to have episodes of SVT. Case was discussed with Dr. Martir Ahuja of electrophysiology yesterday and started on flecainide. Patient has had normalization of heart rate and rhythm. (3) Seizure disorder Is this a current diagnosis for this admission?: Yes (4) Hyperlipidemia Is this a current diagnosis for this admission?: Yes (5) Hypertension Is this a current diagnosis for this admission?: Yes (6) Dementia Is this a current diagnosis for this admission?: YesSummary: Patient has had agitation and is being sent home with Ativan to use when necessary. - Additional Information Resuscitation Status: Full Code Discharge Diet: Cardiac Discharge Activity: Activity As Tolerated, Energy Conservation, Slowly Increase Activity, Supervised Activity Home Medications: Levetiracetam [Keppra 500 mg Tablet] 500 mg PO BID 03/26/16 Lisinopril [Prinivil 40 mg Tablet] 40 mg PO DAILY 03/26/16 Metoprolol Succinate [Toprol Xl 25 mg Tab.sr] 50 mg PO DAILY 03/26/16 Montelukast Sodium [Singulair 10 mg Tablet] 10 mg PO DAILY 03/26/16 Rivaroxaban [Xarelto 10 mg Tablet] 10 mg PO DAILY 03/26/16 Simvastatin [Zocor 40 mg Tablet] 40 mg PO QHS 03/26/16 Flecainide Acetate [Tambocor 100 mg Tablet] 50 mg PO Q12 #60 tablet 03/31/16 Lorazepam [Ativan 0.5 mg Tablet] 0.5 mg PO Q4 PRN #30 tab 03/31/16 History of Present Illness History of Present Illness: TAMEKA THOMAS is a 76 year old female who has a history of atrial fibrillation who was standing up this morning and began feeling palpitations and then lost consciousness and fell to the floor. She quickly regained consciousness but did note her heart going fast. EMS was called and when they arrived she was noted have a heart rate of 170. Patient denied any chest pain associated with this. She did have some mild shortness of breath. The patient was given diltiazem and her heart rate has decreased. She normally takes metoprolol 25 mg daily for her hypertension and atrial fibrillation. Patient reports that she has been compliant with her medications. She does take Xarelto chronically. Patient is followed by Dr. Anthony of [facility] cardiology for her cardiac issues. Hospital Course Hospital Course: 68-year-old female who presented with syncope secondary to atrial fibrillation with a rapid ventricular rate. Patient was initially started on diltiazem drip and had resolution of her atrial fibrillation. Her metoprolol also was increased. Patient did have elevated cardiac enzymes felt most likely to be secondary to a rapid ventricular rate. Patient had episodes of continued tachycardia with a heart rate up to 170 with SVT. We consider transferring the patient to [facility] for electrophysiology studies and the case was discussed with Dr. Martir Ahuja who recommended starting the patient on flecainide which was done. Since that time patient has had normalization of her heart rhythm and rate. Patient while hospitalized also has had problems with worsening dementia. She has some very mild dementia baseline but became very agitated while here. She was given Haldol next became more agitated with that. She has responded to Ativan. Patient is to be given Ativan to use when necessary at home and hopefully will she is in her home environment she lives normalization of her mental status. Physical Exam Vital Signs: Temp Pulse Resp BP Pulse Ox 98.0 F 98 22 H 137/57 H 100 03/31/16 14:28 03/31/16 14:28 03/31/16 14:28 03/31/16 14:28 03/31/16 14:28 Intake & Output 03/30/16 03/31/16 04/01/16 06:59 06:59 06:59 Intake Total 815 630 480 Balance 815 630 480 Weight 52.8 kg 51 kg General appearance: PRESENT: no acute distress Eye exam: PRESENT: conjunctiva pink. ABSENT: scleral icterus Mouth exam: PRESENT: moist, tongue midline Neck exam: ABSENT: JVD Respiratory exam: PRESENT: clear to auscultation maryanne. ABSENT: rales, rhonchi, wheezes Cardiovascular exam: PRESENT: RRR. ABSENT: diastolic murmur, rubs, systolic murmur GI/Abdominal exam: PRESENT: normal bowel sounds, soft. ABSENT: distended, guarding, mass, organolmegaly, rebound, tenderness Extremities exam: ABSENT: calf tenderness, clubbing, pedal edema Neurological exam: PRESENT: awake, oriented to person, oriented to place. ABSENT: oriented to time, oriented to situation, motor sensory deficit Psychiatric exam: PRESENT: anxious Skin exam: PRESENT: dry, intact, warm. ABSENT: cyanosis, rash Results Laboratory Results: 03/29/16 06:57 03/30/16 03/31/16 05:06 05:42 Troponin I 0.143 0.060 Impressions: Chest/Abdomen CTA 03/26/16 12:45 IMPRESSION: 1. No PE. 2. Lower lobe airspace disease could represent atelectasis or developing pneumonia. Clinical correlation is needed. Head CT 03/29/16 00:00 IMPRESSION: No acute intracranial abnormality. Mild chronic changes as above. Qualifiers PATEINT BEING DISCHARGED WITH ANY OF THE FOLLOWING DIAGNOSIS?: No Plan Discharge Plan: Patient is discharged home. The family is informed that if they feel that she needs rehabilitation for physical therapy once they get home they are eligible for the next 30 days to go to rehabilitation. Time Spent: Greater than 30 Minutes
--- NOTE | 2016-04-01 15:29 | PROGRESS NOTE E ---
Progress Note NAME: TAMEKA THOMAS : 1940 AGE: 76Y DATE: 03/31/2016 ROOM: 322 SUBJECTIVE: The patient at present is awake, alert, and oriented x3 with no focal deficit. She remains in sinus rhythm. There is no chest pain or discomfort. There is no PND or orthopnea. There is no palpitation. There is no ventricular arrhythmia seen. There is no pedal edema present. OBJECTIVE: GENERAL: On examination the patient is thin built but is well groomed. VITAL SIGNS: She is afebrile with a temperature of 97.5 degrees Fahrenheit. Pulse is 78 beats per minute. Blood pressure is 158/87. Respirations are 16 per minute. O2 saturations are 100% on room air. HEAD: Atraumatic/normocephalic. EYES: Pupils are equal, round, regular, reactive to light and accommodation. There is no conjunctival pallor. There is no scleral icterus. EARS, NOSE, AND THROAT: Negative. NECK: Supple. There is no JVD. Carotids are equal. There is no bruit. There is no lymphadenopathy. Trachea is central. LUNGS: Clear to auscultation and percussion. HEART: S1, S2 is heard. There is no S3 gallop. There is no S4 gallop. S1 is of normal intensity. Systolic murmur in the apex and in the left sternal border without radiation. There is no rub. ABDOMEN: Soft, nontender. There is no hepatosplenomegaly. Bowel sounds are well heard. EXTREMITIES: Femorals are well felt. There are no femoral bruits. The pedal pulses are 2+ bilaterally. There is no pedal edema. There is no cyanosis or clubbing. There is no calf tenderness. NEUROLOGICAL: The patient is awake, alert, oriented x3 with no focal deficit. PSYCHIATRIC: The patient's judgement and insight appear to be intact. Her affect is normal. DIAGNOSTIC DATA: The patient's troponin-I has come down to 0.060. IMPRESSION: 1. ELEVATED TROPONIN-I LEVEL SECONDARY TO ATRIAL FIBRILLATION/RAPID VENTRICULAR RESPONSE TO PUBLIC HEALTH STAFF NURSE CAUSE. THIS IS NO DEFINITE MYOCARDIAL INFARCTION AND IS TIED TO ISSUE, AND THE PATIENT'S TROPONIN-I HAS TRENDED DOWN. 2. CONFUSION AND SOMNOLENCE MOST LIKELY RELATED TO EFFECT OF ATIVAN. 3. HISTORY OF MEMORY LOSS. 4. PAROXYSMAL ATRIAL FIBRILLATION WITH RAPID VENTRICULAR RESPONSE, AT PRESENT IN SINUS RHYTHM. NOTE THAT THE PATIENT IS ON METOPROLOL AND FLECAINIDE. 5. HYPERLIPIDEMIA. 6. HYPERTENSION, BLOOD PRESSURE IN FAIR CONTROL. 7. SEIZURE DISORDER, NO SEIZURES THIS ADMISSION. 8. SYNCOPE COLLAPSE, MOST LIKELY SECONDARY TO ATRIAL FIBRILLATION/RAPID VENTRICULAR RESPONSE, NO RECURRENCE. RECOMMENDATIONS: The patient is being discharged today on flecainide 25 mg p.o. q.12 h. and metoprolol. Continue Xarelto. Continue Keppra. Continue lisinopril. The patient will follow up with Dr. Allan Anthony, the patient's child nurse. We will try to get a hold of him in the a.m. and discuss with him the patient's course in the hospital. This has been discussed with the patient and patient's daughter. Discussed with the hospitalist taking care of the patient. Note, 30 minutes were spent on this patient with more than 50% of the time spent in direct patient care. Medications reviewed and coordination of care done with the hospitalist taking care of the patient. DICTATING PHYSICIAN: JOE LIN M.D. [id number] PHY#: [id number] ID: [id number] JOB#: [id number] ACCT: [id number] cc:JOE LIN M.D. >
== END 2016-03-31 15:17 | disposition home or self-care (01) | DRG 310 ==
LOC: ER 10:51 → EH 13:45 → 3W 15:45 → OBSVTOIN 03-27 13:22
PROVIDERS: ADMIT Internal Medicine; ATTEND Internal Medicine
DX: I48.0 Paroxysmal atrial fibrillation (principal); E78.5 Hyperlipidemia, unspecified; G40.909 Epilepsy, unspecified, not intractable, without status epilepticus; I10 Essential (primary) hypertension; F03.90 Unspecified dementia, unspecified severity, without behavioral disturbance, psychotic disturbance, mood disturbance, and anxiety; Z79.02 Long term (current) use of antithrombotics/antiplatelets; R29.6 Repeated falls; Z90.710 Acquired absence of both cervix and uterus; Z90.49 Acquired absence of other specified parts of digestive tract; Z82.49 Family history of ischemic heart disease and other diseases of the circulatory system; Z87.891 Personal history of nicotine dependence; Z88.0 Allergy status to penicillin; Z88.7 Allergy status to serum and vaccine; R00.0 Tachycardia, unspecified; Z79.899 Other long term (current) drug therapy
CPT/HCPCS: 36415; 70450; 71275; 80048; 80053; 82550; 82553; 83735; 84443; 84484; 85025; 87070; 87077; 87880; 93005; 93010; 99291; G0378; J2060; J3490

== ENCOUNTER 2018-04-24 13:28 | Emergency (ER) | payer MEDICARE, OTHER ==
[2018-04-24] MEDS ORDERED: ACETAMINOPHEN 325 MG TABLET PO ONE (14:52)
[2018-04-24] MEDS ORDERED: NORMAL SALINE 1000 ML 1,000 ML IV ONE (14:52)
--- NOTE | 2018-04-24 14:54 | ER Document Report ---
ED Medical Screen (RME) - General Chief Complaint: Dizziness Stated Complaint: FALL/BACK PAIN Time Seen by Provider: 04/24/18 14:35 Primary Care Provider: ADOLFO TIJERINA MD [Primary Care Provider] - Follow up as needed TRAVEL OUTSIDE OF THE [place] IN LAST 30 DAYS: No - HPI Notes: 04/24/18 14:52 Patient is a 78-year-old female that presents to the emergency department for chief complaint of lightheadedness and fall. Patient was standing and began to feel lightheaded, she then fell backwards landing on her buttocks. She is complaining of pain in her low back and right hip. Patient states she still feels lightheaded. She denied head injury and loss of consciousness. She denies palpitations, chest pain and shortness of breath. She is on blood thinners. Patient was hypotensive in the waiting room but never had reported syncopal episode. Blood pressure has improved with sitting in triage ROS: GENERAL: Denies fever of chills CV: Denies chest pain PHYSICAL EXAMINATION: GENERAL: Well-appearing, well-nourished and in no acute distress. HEAD: Atraumatic, normocephalic. EYES: Pupils equal round extraocular movements intact, conjunctiva are normal. ENT: Nares patent NECK: Normal range of motion LUNGS: No respiratory distress Musculoskeletal: Normal range of motion, right hip tenderness laterally Back: Midline sacral and low lumbar tenderness NEUROLOGICAL: Normal speech, normal gait. PSYCH: Normal mood, normal affect. MDM: Patient seen and examined for rapid initial assessment. Vital signs reviewed. A comprehensive ED assessment and evaluation of the patient, analysis of test results and completion of the medical decision making process will be conducted by additional ED providers. 04/24/18 14:54 - Related Data Allergies/Adverse Reactions: Penicillins Allergy (Verified 04/24/18 14:31) Tetanus Vaccines and Toxoid [Tetanus] Allergy (Verified 04/24/18 14:31) Past Medical History - Social History Chew tobacco use (# tins/day): No Frequency of alcohol use: None Drug Abuse: None - Past Medical History Cardiac Medical History: Reports: Hx Atrial Fibrillation - Her atrial fibrillation is paroxysmal., Hx Coronary Artery Disease - There is no history of coronary artery disease., Hx Heart Attack - There is no history of myocardial infarction area, Hx Hypercholesterolemia, Hx Hypertension Neurological Medical History: Reports: Hx Seizures - (Sarah Mal seizures). She also has memory loss. Renal/ Medical History: Denies: Hx Peritoneal Dialysis Past Surgical History: Reports: Hx Appendectomy, Hx Hysterectomy Physical Exam - Vital signs Vitals: Temp Pulse Resp BP Pulse Ox 98.0 F 79 19 120/63 94 04/24/18 13:59 04/24/18 13:59 04/24/18 13:59 04/24/18 13:59 04/24/18 13:59 Course - Vital Signs Vital signs: Temp Pulse Resp BP Pulse Ox 98.0 F 79 19 120/63 94 04/24/18 13:59 04/24/18 13:59 04/24/18 13:59 04/24/18 13:59 04/24/18 13:59 Doctor's Discharge - Discharge Referrals: ADOLFO TIJERINA MD [Primary Care Provider] - Follow up as needed
--- NOTE | 2018-04-24 16:11 | RADIOLOGY REPORT (SQ) ---
EXAM DESCRIPTION: CHEST SINGLE VIEW COMPLETED DATE/TIME: 04/24/2018 3:59 pm REASON FOR STUDY: near syncope COMPARISON: 2006. EXAM PARAMETERS: NUMBER OF VIEWS: One view. TECHNIQUE: Single frontal radiographic view of the chest acquired. RADIATION DOSE: NA LIMITATIONS: None. FINDINGS: LUNGS AND PLEURA: Poorly marginated density inferior to the right sternoclavicular border, probably bone origin but cannot exclude underlying pulmonary nodule. MEDIASTINUM AND HILAR STRUCTURES: No masses. Contour normal. HEART AND VASCULAR STRUCTURES: Heart normal in size. Normal vasculature. BONES: No acute findings. HARDWARE: None in the chest. OTHER: No other significant finding. IMPRESSION: Possible lung nodule right upper lobe. No infiltrate. TECHNICAL DOCUMENTATION: JOB ID: [id number] [employer]- All Rights Reserved Reading location - IP/workstation name: [email or web address]
--- NOTE | 2018-04-24 16:12 | RADIOLOGY REPORT (SQ) ---
EXAM DESCRIPTION: HIP RIGHT AP/LATERAL COMPLETED DATE/TIME: 04/24/2018 3:59 pm REASON FOR STUDY: trauma COMPARISON: None. NUMBER OF VIEWS: Two views. TECHNIQUE: AP pelvis and additional frog-leg view of the right hip. LIMITATIONS: None. FINDINGS: MINERALIZATION: Normal. RIGHT HIP: No fracture or dislocation. No worrisome bone lesions. LEFT HIP: No fracture or dislocation. No worrisome bone lesions. PUBIS AND ISCHIUM: No fracture. PELVIS: No fracture. SACRUM: No fracture or dislocation. No worrisome bone lesions. LOWER LUMBAR SPINE: Nothing acute. SOFT TISSUES: No findings. OTHER: Advanced osteoarthritis right hip. IMPRESSION: NO RADIOGRAPHIC EVIDENCE OF ACUTE INJURY. TECHNICAL DOCUMENTATION: JOB ID: [id number] [employer]- All Rights Reserved Reading location - IP/workstation name: [email or web address]
--- NOTE | 2018-04-24 16:13 | RADIOLOGY REPORT (SQ) ---
EXAM DESCRIPTION: L SPINE WHOLE COMPLETED DATE/TIME: 04/24/2018 3:59 pm REASON FOR STUDY: trauma COMPARISON: None. NUMBER OF VIEWS: Five views including obliques. TECHNIQUE: AP, lateral, oblique, and sacral radiographic images acquired of the lumbar spine. LIMITATIONS: None. FINDINGS: MINERALIZATION: Osteopenia. SEGMENTATION: Normal. No transitional anatomy. ALIGNMENT: Normal. VERTEBRAE: Compression fracture L2 approximately 20% height loss which appears chronic. DISCS: Multilevel disc space narrowing with osteophytes. POSTERIOR ELEMENTS: Pedicles and facets are intact. No pars defect or posterior arch defects. Facet arthropathy is present. HARDWARE: None in the spine. PARASPINAL SOFT TISSUES: Normal. PELVIS: See separate report. OTHER: No other significant finding. IMPRESSION: Chronic compression fracture L2. Spondylosis. TECHNICAL DOCUMENTATION: JOB ID: [id number]- All Rights Reserved Reading location - IP/workstation name: [email or web address]
[2018-04-24 16:27] LABS: ABSOLUTE MONOCYTES (AUTO) 0.6 10^3/uL (0.1-1.4); ABSOLUTE NEUT (AUTO) 8.9 10^3/uL (1.7-8.2); BASOPHILS % (AUTO) 0.3 % (0-2); EOSINOPHILS % (AUTO) 0.1 % (0-6); HEMATOCRIT 40.3 % (36.0-47.0); HEMOGLOBIN 13.9 g/dL (12.0-15.5); LYMPHOCYTES % (AUTO) 9.3 % (13-45); MEAN CORPUSCULAR HEMOGLOBIN 31.7 pg (27.0-33.4); MEAN CORPUSCULAR HGB CONC 34.4 g/dL (32.0-36.0); MEAN CORPUSCULAR VOLUME 92 fl (80-97); MONOCYTES % (AUTO) 5.3 % (3-13); PLATELET COUNT 231 10^3/uL (150-450); RED BLOOD COUNT 4.38 10^6/uL (3.72-5.28); RED CELL DISTRIBUTION WIDTH 13.5 % (11.5-14.0); TOTAL CELLS COUNTED % (AUTO) 100 %; WHITE BLOOD COUNT 10.5 10^3/uL (4.0-10.5)
[2018-04-24] MEDS ORDERED: ONDANSETRON HCL INJ/PF 4 MG/2 ML SDV IV ONE (16:34)
[2018-04-24 16:47] LABS: ANION GAP 15 (5-19); BLOOD UREA NITROGEN 17 mg/dL (7-20); CALCIUM 9.7 mg/dL (8.4-10.2); CARBON DIOXIDE 35 mmol/L (22-30); CHLORIDE 88 mmol/L (98-107); GLUCOSE 162 mg/dL (75-110); SODIUM 138.4 mmol/L (137-145)
[2018-04-24 16:50] LABS: POTASSIUM 2.8 mmol/L (3.6-5.0)
[2018-04-24] MEDS ORDERED: POTASSIUM CHLORIDE 10 MEQ CAPSULE.ER PO ONE (17:20)
[2018-04-24] MEDS ORDERED: FENTANYL CITRATE INJ/PF 100 MCG/2 ML AMPUL IV ONE (17:46)
[2018-04-24] MEDS ORDERED: ONDANSETRON 4 MG TAB.RAPDIS ONE (17:55)
[2018-04-24] MEDS ORDERED: ONDANSETRON 4 MG TAB.RAPDIS PO ONE (17:58)
--- NOTE | 2018-04-24 18:54 | RADIOLOGY REPORT (SQ) ---
EXAM DESCRIPTION: CT HEAD WITHOUT COMPLETED DATE/TIME: 04/24/2018 6:34 pm REASON FOR STUDY: fall COMPARISON: 03/29/2016 TECHNIQUE: Axial images acquired through the brain without intravenous contrast. Images reviewed wi th bone, brain and subdural windows. Additional sagittal and coronal reconstructions were generated. Images stored on PACS. All CT scanners at this facility use dose modulation, iterative reconstruction, and/or weight based d osing when appropriate to reduce radiation dose to as low as reasonably achievable (ALARA). [facility]: Dose Right [facility]: CareDose [facility]: Dose Right [facility]: Teradose 4D [facility]: [employer] RADIATION DOSE: CT Rad equipment meets quality standard of care and radiation dose reduction techniq ues were employed. CTDIvol: 53.2 mGy. DLP: 964 mGy-cm.mGy. LIMITATIONS: None. FINDINGS: VENTRICLES: Prominent. CEREBRUM: No masses. No hemorrhage. No midline shift. Areas of low density in the white matter mos t likely due to chronic micro-vascular ischemic change. No evidence for acute infarction. CEREBELLUM: No masses. No hemorrhage. No alteration of density. No evidence for acute infarction. EXTRAAXIAL SPACES: Age-related involutional change. No fluid collections. No masses. ORBITS AND GLOBE: No intra- or extraconal masses. Normal contour of globe without masses. CALVARIUM: No fracture. PARANASAL SINUSES: No fluid or mucosal thickening. SOFT TISSUES: No mass or hematoma. OTHER: No other significant finding. IMPRESSION: CHRONIC CHANGES OF ATROPHY AND MICROVASCULAR ISCHEMIA. NO ACUTE PROCESS. EVIDENCE OF ACUTE STROKE: NO. TECHNICAL DOCUMENTATION: JOB ID: [id number] Quality ID # [id number]: Final reports with documentation of one or more dose reduction techniques (e.g., Au tomated exposure control, adjustment of the mA and/or kV according to patient size, use of iterative reconstruction technique) 2010 [employer]- All Rights Reserved Reading location - IP/workstation name: [email or web address]
--- NOTE | 2018-04-24 18:56 | RADIOLOGY REPORT (SQ) ---
EXAM DESCRIPTION: CT CERVICAL SPINE WITHOUT COMPLETED DATE/TIME: 04/24/2018 6:34 pm REASON FOR STUDY: trauma COMPARISON: None. TECHNIQUE: Axial images acquired through the cervical spine without intravenous contrast. Images re viewed with lung, soft tissue and bone windows. Reconstructed coronal and sagittal MPR images review ed. Images stored on PACS. All CT scanners at this facility use dose modulation, iterative reconstruction, and/or weight based d osing when appropriate to reduce radiation dose to as low as reasonably achievable (ALARA). [facility]: Dose Right [facility]: CareDose [facility]: Dose Right [facility]: Teradose 4D [facility]: [employer] RADIATION DOSE: CT Rad equipment meets quality standard of care and radiation dose reduction techniq ues were employed. CTDIvol: 10.1 mGy. DLP: 212 mGy-cm. mGy. LIMITATIONS: None. FINDINGS: ALIGNMENT: Anatomic. MINERALIZATION: Osteopenia. VERTEBRAL BODIES: No fractures or dislocation. DISCS: Multilevel disc space narrowing with osteophytes. FACETS, LATERAL MASSES, POSTERIOR ELEMENTS: Facet arthropathy. No fractures. No dislocation. No ac naknek findings. HARDWARE: None in the spine. VISUALIZED RIBS: No fractures. LUNG APICES AND SOFT TISSUES: No significant or acute findings. OTHER: No other significant finding. IMPRESSION: CHRONIC DEGENERATIVE CHANGES. NO ACUTE FINDINGS. TECHNICAL DOCUMENTATION: JOB ID: [id number] Quality ID # [id number]: Final reports with documentation of one or more dose reduction techniques (e.g., Au tomated exposure control, adjustment of the mA and/or kV according to patient size, use of iterative reconstruction technique) 2010 [employer]- All Rights Reserved Reading location - IP/workstation name: [email or web address]
[2018-04-24] MEDS ORDERED: LIDOCAINE 5% (700 MG) TRANSDERMAL ADH..PATCH TP ONE (20:38)
[2018-04-24] MEDS ORDERED: POTASSIUM CHLORIDE 20 MEQ/15 ML UDCUP PO ONE ×2 (21:46)
--- NOTE | 2018-04-24 21:47 | RADIOLOGY REPORT (SQ) ---
CT ABDOMEN PELVIS WITH IV CONTRAST EXAM DATE: 04/24/2018 16:34 HISTORY: Abdominal pain. COMPARISON: None. TECHNIQUE: CT scan of the abdomen and pelvis with IV contrast. This exam was performed according to our departmental dose-optimization program, which includes automated exposure control, adjustment of the mA and/or kV according to patient size and/or use of iterative reconstruction technique. FINDINGS: There is mild atelectasis and scarring at the left lung base. No pleural or pericardial effusions. No hiatal hernia is seen. Multiple punctate splenic granulomas. The liver, gallbladder, pancreas, adrenal glands, and left kidney are unremarkable. There are punctate nonobstructing stones in the right kidney. No hydronephrosis. There has been a prior hysterectomy. There are scattered colonic diverticula without surrounding inflammatory changes. The appendix is normal. No small bowel obstruction. No intraperitoneal free fluid or free air is seen. There is an acute to subacute compression fracture of L2 with minimal retropulsion. There is irregularity of the inferior endplate of L4 which appears chronic. Sclerosis of the bilateral femoral heads, nonspecific. IMPRESSION: 1. Acute to subacute compression fracture of L2. 2. Diverticulosis without inflammatory changes. 3. Punctate nonobstructing stone in the right kidney.
[2018-04-24 21:50] LABS: APPEARANCE,URINE CLEAR; BILIRUBIN,URINE NEGATIVE (NEGATIVE); COLOR,URINE YELLOW; GLUCOSE, URINE NEGATIVE (NEGATIVE); KETONES,URINE NEGATIVE (NEGATIVE); LEUKOCYTE ESTERASE,URINE NEGATIVE (NEGATIVE); NITRITE,URINE NEGATIVE (NEGATIVE); PROTEIN,URINE NEGATIVE (NEGATIVE); URINE SPECIFIC GRAVITY 1.011; UROBILINOGEN,URINE NEGATIVE mg/dL (<2.0)
[2018-04-24] MEDS: POTASSI CL 20 MEQ/50 ML RIDER 20 MEQ/50 ML RTUPB IV SCH ×2 (21:55→22:25)
--- NOTE | 2018-04-24 22:43 | EKG REPORT ---
SEVERITY:- ABNORMAL ECG - SINUS RHYTHM SUPRAVENTRICULAR BIGEMINY NONSPECIFIC ST-T CHANGES- INFERIOR LEADS : Confirmed by: Eric Villagomez MD 24-Apr-2018 22:42:05
[2018-04-24] MEDS ORDERED: CYCLOBENZAPRINE HCL 10 MG TABLET PO ONE (23:17)
[2018-04-25 00:10] VITALS: BP 111/76
--- NOTE | 2018-04-25 03:39 | ER Document Report ---
Entered by DIANE RODRIGUEZ SCRIBE 04/24/18 [id number] Acting as scribe for:AZUCENA MORALES DO ED Fall - General Chief Complaint: Dizziness Stated Complaint: FALL/BACK PAIN Time Seen by Provider: 04/24/18 14:35 Primary Care Provider: ADOLFO TIJERINA MD [[employer]] - Follow up as needed Mode of Arrival: Ambulatory Information source: Patient Notes: 78-year-old female who presents to the emergency department today with complaints of back pain secondary to a fall that occurred this morning. Patient states that she was making coffee when she got dizzy and then fell this morning. Patient states she believes she landed on her butt. [id number] at bedside states she was told that the patient was found by her lying flat on her back. Patient states that she is on Lasix but eats bananas daily. Patient mentions "hernia pain" as well with 3 episodes of vomiting in the waiting room here. Patient states there is no blood in her vomit. Patient denies any diarrhea. TRAVEL OUTSIDE OF THE [place] IN LAST 30 DAYS: No - Related data Allergies/Adverse Reactions: Penicillins Allergy (Verified 04/24/18 14:31) Tetanus Vaccines and Toxoid [Tetanus] Allergy (Verified 04/24/18 14:31) Past Medical History - General Information source: Patient, Relative - Social History Smoking Status: Never Smoker Cigarette use (# per day): No Chew tobacco use (# tins/day): No Frequency of alcohol use: None Drug Abuse: None Lives with: Spouse/Significant other Family History: None, Reviewed & Not Pertinent, CAD - There is a history of coronary artery disease in her mother. Patient has suicidal ideation: No Patient has homicidal ideation: No - Past Medical History Cardiac Medical History: Reports: Hx Atrial Fibrillation - Her atrial fibrillation is paroxysmal., Hx Coronary Artery Disease - There is no history of coronary artery disease., Hx Heart Attack - There is no history of myocardial infarction area, Hx Hypercholesterolemia, Hx Hypertension Neurological Medical History: Reports: Hx Seizures - ([place] Mal seizures). She also has memory loss. Past Surgical History: Reports: Hx Appendectomy, Hx Hysterectomy Review of Systems - Review of Systems Constitutional: No symptoms reported EENT: No symptoms reported Cardiovascular: See HPI, Dizziness Respiratory: No symptoms reported Gastrointestinal: See HPI, Abdominal pain, Vomiting. denies: Diarrhea, Blood in vomit Genitourinary: No symptoms reported Female Genitourinary: No symptoms reported Musculoskeletal: See HPI, Back pain Skin: No symptoms reported Hematologic/Lymphatic: No symptoms reported Neurological/Psychological: No symptoms reported -: Yes All other systems reviewed and negative Physical Exam - Vital signs Vitals: Temp Pulse Resp BP Pulse Ox 98.0 F 79 19 120/63 94 04/24/18 13:59 04/24/18 13:59 04/24/18 13:59 04/24/18 13:59 04/24/18 13:59 - Notes Notes: GENERAL: Alert, interacts well. No acute distress. HEAD: Normocephalic, atraumatic. EYES: Pupils equal, round, and reactive to light. Extraocular movements intact. ENT: Oral mucosa moist, tongue midline. NECK: Full range of motion. Supple. Trachea midline. LUNGS: Clear to auscultation bilaterally, no wheezes, rales, or rhonchi. No respiratory distress. HEART: Regular rate and rhythm. No murmurs, gallops, or rubs. ABDOMEN: Semi-firm on palpation, diffuse lower abdominal tenderness with palpation, umbilical tenderness with palpation, no palpable hernia. Non-di stended. Bowel sounds present in all 4 quadrants. No guarding, rigidity, or rebound. EXTREMITIES: Moves all 4 extremities spontaneously. No edema, radial and dorsalis pedis pulses 2/4 bilaterally. No cyanosis. BACK: No midline bony tenderness with palpation, no step off or deformity. NEUROLOGICAL: Alert and oriented x3. Normal speech. PSYCH: Normal affect, normal mood. SKIN: Warm, dry, normal turgor. No rashes or lesions noted. Course - Re-evaluation Re-evalutation: 04/24/18 23:19 CBC unremarkable, CMP shows a low potassium at 2.8 BMP shows a low potassium at 2.8, patient is receiving oral potassium repletion, she is on Lasix, states she takes a banana by mouth every day but does not use exogenous potassium. Has not been having any vomiting or diarrhea that would lead to increased potassium losses. Renal function is normal. Troponin is negative. Not having any chest pain. Urinalysis unremarkable. Given the fall we did perform multiple x-rays and then given some fatigue and near syncopal episodes in the waiting room a CT scan of the head and neck were also performed. X-ray of the right hip was negative for acute process, lumbar spine revealed chronic fracture chronic compression fracture of L2. Chest x-ray revealed a right upper lobe nodule that needs outpatient follow-up, CT scan of the head and cervical spine were negative for acute process but did show chronic right microvascular ischemia and chronic degenerative changes. X-ray of the abdomen CT scan the abdomen pelvis was ordered given the tenderness to palpation on abdominal examination, there is no acute intra-abdominal process, it does show an acute to subacute compression fracture of L2 with minimal retropulsion. Irregularity of the inferior endplate of L4 which appears chronic. Patient is having no acute symptoms of cauda equina or spinal cord compression. Patient will be discharged to home with [facility], recommended to follow-up as an outpatient with primary care physician. Consult with pain management for possible kyphoplasty although given the fact that the CAT scan says it is acute to subacute and the x-ray says it is chronic I doubt she is a candidate. Patient is also recommend a follow-up with an outpatient primary care physician regarding the right upper lobe nodule. Discussed with daughter the patient's chronic intermittent abdominal pain and recommended using MiraLAX, keeping a pain and food diary and following up with primary care physician. - Vital Signs Vital signs: Temp Pulse Resp BP Pulse Ox 98.0 F 79 19 120/63 94 04/24/18 13:59 04/24/18 13:59 04/24/18 13:59 04/24/18 13:59 04/24/18 13:59 - Laboratory Result Diagrams: 04/24/18 16:12 04/24/18 16:12 Laboratory results interpreted by me: 04/24/18 04/24/18 16:12 16:12 Seg Neutrophils % 85.0 H Lymphocytes % 9.3 L Absolute Neutrophils 8.9 H Potassium 2.8 L* Chloride 88 L Carbon Dioxide 35 H Est GFR (Non-Af Amer) 54 L Glucose 162 H - EKG Interpretation by Me Additional EKG results interpreted by me: 04/24/18 23:20 EKG shows sinus rhythm at a rate of 55, occasional PACs, no ST segment elevations or depressions, T wave inversion noted in aVF which is nonspecific per my interpretation. Discharge - Discharge Clinical Impression: Hypokalemia, Chronic abdominal pain Fall at home Qualifiers: Encounter type: initial encounter Qualified Code(s): W19.XXXA - Unspecified fall, initial encounter; Y92.009 - Unspecified place in unspecified non- institutional (private) residence as the place of occurrence of the external cause Compression fracture of L2 Qualifiers: Encounter type: initial encounter Fracture type: closed Qualified Code(s): S32.020A - Wedge compression fracture of second lumbar vertebra, initial encounter for closed fracture Condition: Stable Disposition: HOME, SELF-CARE Additional Instructions: You appear to have a compression fracture of L2, the second vertebrae in your lumbar spine. This looks chronic on your x-ray and subacute on your CAT scan. It is unlikely that there is anything that neurosurgery or pain management can do to decrease the pain from this area however you may wish to call to follow-up with pain management to discuss the possibility of kyphoplasty or other pr ocedure that may help to further alleviate your pain if this fracture is not too old. It does not appear to have occurred today. Today your potassium was low, we gave you potassium through the IV and by mouth to increase her potassium. Please continue to eat your banana every day. Your potassium is likely getting low because of the fluid pill that you are taking. It is important to have your potassium rechecked by your primary care physician on Friday or Friday. The chest x-ray showed a nodule in your right upper lobe. You will need to have a repeat chest x-ray or a CAT scan in the next few months to see if there is any sign that this is cancer rather than scarring on your lung. This should be performed by her primary care physician. We have sent her images to [facility], they should be able to find them in their radiology system. For her chronic abdominal pain she may wish to consider following up with a GI doctor and trying MiraLAX. Please dissolve 1 scoop of MiraLAX in a glass of water once a day to treat constipation. You may increase to twice a day if needed to create soft bowel movements and you may decrease to every other day if you develop diarrhea. Prescriptions: Cyclobenzaprine HCl [Flexeril 5 mg Tablet] 5 mg PO TIDP PRN #15 tablet PRN Reason: Referrals: ADOLFO TIJERINA MD [[facility]] - Follow up as needed SARAY LOPEZ MD [Primary Care Provider] - Follow up as needed I personally performed the services described in the documentation, reviewed and edited the documentation which was dictated to the scribe in my presence, and it accurately records my words and actions.
== END 2018-04-25 00:10 | disposition home or self-care (01) ==
LOC: ER 13:28
DX: S32.020A Wedge compression fracture of second lumbar vertebra, initial encounter for closed fracture (principal); E87.6 Hypokalemia; R10.9 Unspecified abdominal pain; G89.29 Other chronic pain; R42 Dizziness and giddiness; M54.9 Dorsalgia, unspecified; R11.10 Vomiting, unspecified; W19.XXXA Unspecified fall, initial encounter
CPT/HCPCS: 93005; 36415; 85025; 80048; 81001; 84484; 71045; 73502; 72110; 70450; 72125; 74177; 93010; A9270 ×4; J3480; S0119